=== PATIENT | female | born 1985 | race Caucasian/White ===

== ENCOUNTER 2017-02-12 16:52 | Emergency (ER) | payer OTHER ==
[2017-02-12 17:35] VITALS: BP 119/65
[2017-02-12] MEDS ORDERED: Ketorolac INJ* 60 MG/2 ML VIAL IM ONE (17:44)
--- NOTE | 2017-02-12 17:54 | UC ---
Back Pain HPI - HPI Summary HPI Summary: TWO DAYS OF BACK SPASMS. HAS HISTORY OF BACK PAIN AND SPINAL STENOSIS. HAS HAD TORADOL INJECTION IN PAST, HELPED WITH SPASMS. DOES NOT WANT ANY NARCOTICS.NO NUMBNESS OR TINGLING. NO DIFFICULTY WITH URINATION. NO TRAUMA. NO LOSS OF CONTROL OF BLADDER OR BOWELS. PALPABLE SPASM. HX OF KIDNEY STONES IN THE PAST " BUT THIS JUST FEELS LIKE A SPASM." - History of Current Complaint Chief Complaint: UCBackPain Stated Complaint: BACK SPASMS Time Seen by Provider: 02/12/17 17:29 Hx Obtained From: Patient Hx Last Menstrual Period: 01/30/17 Onset/Duration: Sudden Onset, Lasting Days, Still Present Timing: Constant, Lasting Days Severity Initially: Moderate Severity Currently: Severe Back Pain: Is Discrete @ - RIGHT MID BACK Character: Throbbing, Spasmodic Aggravating: Movement Alleviating: Rest, Position Associated Signs And Symptoms: Negative: Fever, Numbness, Tingling, Abdominal Pain, Flank Pain, Bladder Incontinence, Bowel Incontinence Related History: Previous Back Injury - Risk Factors AAA Risk Factors: Negative TAD Risk Factors: Negative Cauda Equina Risk Factors: Negative Epidural Abscess Risk Factors: Negative - Allergies/Home Medications Allergies/Adverse Reactions: Allergies Allergy/AdvReac Type Severity Reaction Status Date / Time AVOIDS NARCOTICS Allergy See Comment Uncoded 02/12/17 17:24 PMH/Surg Hx/FS Hx/Imm Hx Previously Healthy: Yes Endocrine History Of: Denies: Diabetes, Thyroid Disease Cardiovascular History Of: Denies: Cardiac Disorders, Hypertension Respiratory History Of: Denies: COPD, Asthma GI/ History Of: Denies: Ulcer - Surgical History Surgical History: Yes Surgery Procedure, Year, and Place: , tonsilectomy. appendectomy 2013 - Family History Known Family History: Positive: Hypertension - Social History Occupation: Employed Full-time Lives: With Family Alcohol Use: Rare Substance Use Type: Heroin Substance Use Comment - Amount & Last Used: IN RECOVERY THREE TIMES A WEEK. Smoking Status (MU): Current Some Day Smoker Type: Cigarettes Amount Used/How Often: OCCASSIONAL - Immunization History Most Recent Influenza Vaccination: no Review of Systems Constitutional: Negative Skin: Negative Eyes: Negative ENT: Negative Respiratory: Negative Cardiovascular: Negative Gastrointestinal: Negative Genitourinary: Negative Motor: Negative Neurovascular: Negative Musculoskeletal: Arthralgia, Myalgia Neurological: Negative Psychological: Negative All Other Systems Reviewed And Are Negative: Yes Physical Exam Triage Information Reviewed: Yes Appearance: Well-Appearing, Well-Nourished, Pain Distress - MODERATE Vital Signs: Initial Vital Signs Temp 98.8 F 02/12/17 17:25 Pulse 89 02/12/17 17:25 Resp 18 02/12/17 17:25 BP 119/65 02/12/17 17:25 Pulse Ox 97 02/12/17 17:25 Vital Signs Reviewed: Yes Eye Exam: Normal ENT Exam: Normal ENT: Positive: Normal ENT inspection Dental Exam: Normal Neck exam: Normal Neck: Positive: Supple, Nontender, No Lymphadenopathy Respiratory Exam: Normal Respiratory: Positive: Chest non-tender, Lungs clear, Normal breath sounds, No respiratory distress, No accessory muscle use Cardiovascular Exam: Normal Cardiovascular: Positive: RRR, No Murmur, Pulses Normal Abdominal Exam: Normal Abdomen Description: Positive: Nontender, No Organomegaly. Negative: CVA Tenderness (R), CVA Tenderness (L) Musculoskeletal Exam: Normal Musculoskeletal: Positive: Strength Intact, ROM Intact, No Edema Neurological Exam: Normal Psychological Exam: Normal Skin Exam: Normal Back Pain Course/Dx - Differential Dx/Diagnosis Differential Diagnosis/HQI/PQRI: Arthritis, Strain, Sprain Provider Diagnoses: MUSCLE SPASM RIGHT MID BACK; ACUTE ON CHRONIC BACK PAIN Discharge - Discharge Plan Condition: Stable Disposition: HOME Prescriptions: Cyclobenzaprine TAB* [Flexeril 10 MG TAB*] 10 mg PO BID PRN #10 tab PRN Reason: Spasms Ketorolac TAB * [Toradol TAB *] 10 mg PO Q8HR #10 tab Patient Education Materials: Muscle Spasm (ED), Chronic Back Pain (ED) Referrals: Mago Luna PA [Primary Care Provider] - Additional Instructions: PHYSICAL THERAPY REFERRAL: You have been prescribed physical therapy. Treatments may include stretching, exercise, application of heat or cold, and other modalities. After an injury, PT can reduce swelling and pain. In recovery, PT is used to restore mobility and strength. Your specific treatment goals are: ___X__ Reduction of Swelling (EGS, US, ice as needed) __X___ Pain Reduction (EGS, US, ice as needed) ___X__ TENS Pack Fitting and Instruction Wound Hydrotherapy ____X_ Preservation of Mobility ____X_ Latter Day of Mobility ___X__ Strength Latter Day ___X__ Work or Sports Hardening This instruction sheet also serves as your PHYSICAL THERAPY REFERRAL! Please take it with you to the therapist, so he/she will be aware of your diagnosis and treatment plan. You may see the physical therapist of your choice for these treatments, but may wish to check with your insurance to be sure the provider you select is covered. It's important to see the doctor to whom you have been referred for follow up.
== END 2017-02-12 18:06 | disposition home or self-care (01) ==
LOC: UCCORT 16:52
DX: M62.830 Muscle spasm of back (principal); M54.9 Dorsalgia, unspecified; Z88.5 Allergy status to narcotic agent; Z72.0 Tobacco use
CPT/HCPCS: 96372; 99212; G0463; J1885

== ENCOUNTER 2017-05-23 11:25 | Emergency (ER) | payer OTHER ==
--- NOTE | 2017-05-23 11:36 | UC ---
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, concerned she has thrush in her mouth, tongue is sore and irritated - History of Current Complaint Chief Complaint: UCDentalProblem Stated Complaint: ORAL COMPLAINT Time Seen by Provider: 05/23/17 11:28 Hx Obtained From: Patient Hx Last Menstrual Period: 01/30/17 ?: No Onset/Duration: Gradual Onset, Lasting Days, Still Present Severity: Mild Aggravating: Chewing Alleviating: Nothing - Allergies/Home Medications Allergies/Adverse Reactions: Allergies Allergy/AdvReac Type Severity Reaction Status Date / Time AVOIDS NARCOTICS Allergy See Comment Uncoded 05/23/17 12:01 Home Medications: Home Medications Ferrous Gluconate TAB* [Fergon TAB*] 325 mg PO DAILY 05/23/17 [History Confirmed 05/23/17] Furosemide TAB* [Lasix TAB*] 20 mg PO BID 05/23/17 [History Confirmed 05/23/17] Multivitamins/Minerals TAB* [Thera M Plus TAB*] 1 tab PO DAILY 05/23/17 [ History Confirmed 05/23/17] Warfarin TAB(*) [Coumadin TAB(*)] 7.5 mg PO DAILY 05/23/17 [History Confirmed ] PMH/Surg Hx/FS Hx/Imm Hx Previously Healthy: No Cardiovascular History: Other - tricuspid valve replacement, Other Cardiovascular History: tricuspid valve replacement - Surgical History Surgical History: Yes Surgery Procedure, Year, and Place: , tonsilectomy. 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 Smoking Status (MU): Current Some Day Smoker Type: Cigarettes Amount Used/How Often: OCCASSIONAL - Immunization History Most Recent Influenza Vaccination: no Review of Systems Constitutional: Negative Skin: Negative Eyes: Negative ENT: Other - tongue is sore Respiratory: Negative Cardiovascular: Negative Gastrointestinal: Negative Genitourinary: Negative Motor: Negative Neurovascular: Negative Musculoskeletal: Negative Neurological: Negative Psychological: Negative All Other Systems Reviewed And Are Negative: Yes Physical Exam Triage Information Reviewed: Yes Appearance: Well-Appearing, No Pain Distress, Well-Nourished Vital Signs Reviewed: Yes Eye Exam: Normal Eyes: Positive: Conjunctiva Clear ENT Exam: Normal ENT: Positive: Normal ENT inspection, Hearing grossly normal, Pharyngeal erythema, TMs normal. Negative: Nasal congestion, Nasal drainage, Tonsillar swelling, Tonsillar exudate, Trismus, Muffled/hoarse voice Dental Exam: Normal Neck exam: Normal Neck: Positive: Supple, Nontender Respiratory Exam: Normal Respiratory: Positive: Chest non-tender, Lungs clear, Normal breath sounds, No respiratory distress, No accessory muscle use Cardiovascular Exam: Normal Cardiovascular: Positive: RRR, No Murmur, Pulses Normal, Brisk Capillary Refill Musculoskeletal Exam: Normal Musculoskeletal: Positive: Strength Intact, ROM Intact, No Edema Neurological Exam: Normal Neurological: Positive: Alert, Muscle Tone Normal Psychological Exam: Normal Skin Exam: Normal Diagnostics - EKG Cardiac Rate: Tachycardia Cardiac Rhythm: Sinus: Normal Ectopy: None ST Segment: Normal Re-Evaluation - Re-Evaluation First Eval Change: Worse - nurse in to triage patient after patient seen by me. Patient now c/o feeling clammy, heart beating fast, just not right---EKG done ST [address] change--plan now to transfer patient to [facility] for further evaluation Dental Complaint Course/Dx - Course Course Of Treatment: transfer AMA to [facility] with grandmother driving - Differential Dx/Diagnosis Differential Diagnosis/Dx: Gingivitis, Peridontic Disease, Other - Thrush, Hypokalemia, tachycardia Provider Diagnoses: Tachycardia, thrush - Physician Notification/Consults Time Discussed With Above Provider: 12:15 - Dr. Louie Instructed by Provider To: Transfer Discharge - Discharge Plan Condition: Guarded Disposition: AGAINST MEDICAL ADVICE Prescriptions: Nystatin SUSPENSION* 500,000 units .SEE ORDER BID #100 ml Patient Education Materials: Nystatin (By mouth), Oral Candidiasis (ED), Tachycardia (ED) Referrals: Mago Luna PA [Physician Police Service Technician] - 1 Week
[2017-05-23 12:01] VITALS: BP 136/103
== END 2017-05-23 12:20 | disposition left against medical advice (07) ==
LOC: UCCORT 11:25
DX: R00.0 Tachycardia, unspecified (principal); B37.0 Candidal stomatitis; Z88.5 Allergy status to narcotic agent; Z79.01 Long term (current) use of anticoagulants; Z95.2 Presence of prosthetic heart valve; F17.210 Nicotine dependence, cigarettes, uncomplicated
CPT/HCPCS: 93005; 99212; G0463

== ENCOUNTER 2017-10-19 16:03 | Emergency (ER) | payer OTHER ==
[2017-10-19 16:38] VITALS: BP 136/82
== END 2017-10-19 16:44 | disposition left against medical advice (07) ==
LOC: UCCORT 16:03
DX: L98.9 Disorder of the skin and subcutaneous tissue, unspecified (principal); Z53.21 Procedure and treatment not carried out due to patient leaving prior to being seen by health care provider

== ENCOUNTER 2018-03-22 11:27 | Emergency (ER) | payer OTHER ==
[2018-03-22 12:15] VITALS: BP 138/89
[2018-03-22] MEDS ORDERED: Tetracaine 0.5% OPTH.SOL 4 ML* 1 DROP BTL ONE (12:25)
[2018-03-22] MEDS ORDERED: Fluorescein Sod TOPICAL 0.6* 0.6 MG TEST OPHTHALMIC ONE (12:25)
--- NOTE | 2018-03-22 12:44 | UC ---
Eye Complaint HPI - HPI Summary HPI Summary: Patient presents to with complaints of left eye pain, redness, swelling and tearing. Patient states she fell asleep with her contacts in the night before last. Patient states yesterday during the day her eye became more red. Patient states this morning it was painful and tearing. Patient states she is unable to keep eye open because of the tearing and discomfort. Patient states feels like it's "scratched". Patient without other complaints. No ear pain no sinus pain no sore throat. Patient did not take any medication for it. She states she is photophobic and sunglasses improve. Patient does not know last tetanus Medications medications reviewed this visit - History of Current Complaint Chief Complaint: UCEye Stated Complaint: EYE IRRITATION Time Seen by Provider: 03/22/18 12:44 Hx Obtained From: Patient Hx Last Menstrual Period: current ?: No Severity Initially: Mild Severity Currently: Mild Pain Intensity: 2 Pain Scale Used: 0-10 Numeric - Allergies/Home Medications Allergies/Adverse Reactions: Allergies Allergy/AdvReac Type Severity Reaction Status Date / Time AVOIDS NARCOTICS Allergy See Comment Uncoded 03/22/18 12:15 PMH/Surg Hx/FS Hx/Imm Hx Previously Healthy: Yes - substance use currently in remission Other Cardiovascular History: tricuspid valve replaced second endocarditis - Surgical History Surgical History: Yes Surgery Procedure, Year, and Place: , tonsilectomy. appendectomy 2013. 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 Pt able to read after instilled tetracaine everted lids - no f.b. fluoroscene dye - pt with corneal abrasion 2 o'clock no foreign body ENT: Hearing grossly normal neck: supple Respiratory: Positive: No respiratory distress, No accessory muscle use Cardiovascular: skin color reflect adequate perfusion Musculoskeletal Exam: SWEET x 4 without difficulty Neurological: Positive: Alert, ambulatory without difficulty Psychological: Positive: Normal Response To Family Skin: Positive: no rash, no ecchymosis Triage Information Reviewed: Yes Vital Signs: Initial Vital Signs Temp 96.7 F 03/22/18 12:11 Pulse 78 03/22/18 12:11 Resp 18 03/22/18 12:11 BP 138/89 03/22/18 12:11 Pulse Ox 100 03/22/18 12:11 Eye Complaint Course/Dx - Course Course Of Treatment: Patient presents with irritation erythema to left eye after sleeping with contact lenses in. Patient after fluorescein has a small corneal abrasion. Patient will be started on ciprofloxacin drops. Patient also given a prescription for ketorolac drops. Discussed with patient Motrin Tylenol for pain. Also updated tetanus. Patient to follow up with clinical rehab specialist tomorrow. Patient will likely go the eye clinic in [place]. Also discussed with her doctor earlier. Strict return precautions discussed. Pt aware should not put contact lenses back in - Differential Dx/Diagnosis Provider Diagnoses: corneal abrasion contact lenses Discharge - Sign-Out/Discharge Documenting (check all that apply): Discharge/Admit/Transfer - Discharge Plan Condition: Stable Disposition: HOME Prescriptions: Ciprofloxacin 0.3% OPTH.AGNES* [Cipro 0.3% Opth*] 2 drop LEFT EYE Q4H #1 btl Ketorolac 0.5% OPHTH (NF) 1 drop LEFT EYE TID PRN #1 btl PRN Reason: eye pain Patient Education Materials: Diphtheria/Pertussis/Tetanus Vaccine (By injection ), Corneal Abrasion (ED) Forms: *Gen. Provider Communication, *Work Release Referrals: Barber YUN,Jorge Alberto Oliva [Primary Care Provider] - Additional Instructions: - Apply eye drops every 4hours today and tomorrow - discuss further treatment when you are evaluated by the clinical rehab specialist - okay to use eye drops as prescribed for pain - alternate ibuoprofen (advil, motrin) and tylenol every 3hours for pain. Take with food. 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
[2018-03-22] MEDS ORDERED: Tetan/Diph/Pertus SYR(Tdap)* 0.5 ML SYR(BOOSTRIX) use SYR IM ONE (12:59)
== END 2018-03-22 13:21 | disposition home or self-care (01) ==
LOC: UCCORT 11:27
DX: H18.822 Corneal disorder due to contact lens, left eye (principal); Z88.5 Allergy status to narcotic agent; Z95.2 Presence of prosthetic heart valve; F17.210 Nicotine dependence, cigarettes, uncomplicated
CPT/HCPCS: 90471; 90715; 99212; A9270-GY; G0463

== ENCOUNTER 2019-12-20 15:54 | Emergency (ER) | payer OTHER ==
--- NOTE | 2019-12-20 16:23 | UC ---
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 She has not had fever, chills, appetite loss or myalgias. No headache. Hx of bronchitis, last treated about 8 months ago, and typically needs steroids and albuterol. 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 She has not had direct contact, does not know the result of her co-worker's test, and he remains in isolation. - History of Current Complaint Stated Complaint: COUGH, WHEEZING Time Seen by Provider: 12/20/19 16:12 Hx Obtained From: Patient Hx Last Menstrual Period: current Onset/Duration: Gradual Onset, Lasting Days Timing: Intermittent Episodes Severity Initially: Mild Severity Currently: Moderate Character: Cough: Productive Aggravating Factors: Recumbent Position Alleviating Factors: Nothing Associated Signs And Symptoms: Positive: Dyspnea - Risk Factors Pulmonary Embolism Risk Factors: Negative Cardiac Risk Factors: Negative Pseudomonas Risk Factors: Negative Tuberculosis Risk Factors: Negative - Allergies/Home Medications Allergies/Adverse Reactions: Allergies Allergy/AdvReac Type Severity Reaction Status Date / Time AVOIDS NARCOTICS Allergy See Comment Uncoded 12/20/19 16:10 Home Medications: Home Medications Albuterol HFA INHALER* [Ventolin HFA Inhaler*] 2 puff INH Q6H PRN #1 mdi [Rx] Amoxicillin/Clavulanate TAB* [Augmentin TAB 875*] 875 mg PO BID #14 tab [Rx] predniSONE 20 mg TAB [Deltasone 20 MG TAB*] 40 mg PO DAILY #10 tab 12/20/19 [Rx] PMH/Surg Hx/FS Hx/Imm Hx Previously Healthy: Yes - smoker Cardiovascular History: Other - hx of 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 Respiratory History: Bronchitis - Surgical History Surgical History: Yes Surgery Procedure, Year, and Place: , tonsilectomy. appendectomy 2013. 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 Negative: Fever Skin: Positive: Negative Eyes: Positive: Negative ENT: Positive: Ear Ache Respiratory: Positive: Shortness Of Breath, Cough Cardiovascular: Negative: Palpitations, Chest Pain Gastrointestinal: Positive: Negative Genitourinary: Positive: Negative Motor: Positive: Negative Neurovascular: Positive: Negative Musculoskeletal: Positive: Negative Neurological/Mental Status: Positive: Negative Psychological: Positive: Negative Is Patient Immunocompromised?: No Physical Exam Triage Information Reviewed: Yes Appearance: Well-Appearing, No Pain Distress ENT: Positive: Pharynx normal Neck: Positive: Supple, Nontender, No Lymphadenopathy Respiratory: Positive: No respiratory distress, Decreased breath sounds, Wheezing - expiratory wheezes throughout both lung jeffrey Cardiovascular: Positive: RRR, No Murmur Musculoskeletal Exam: Normal Neurological Exam: Normal Psychological Exam: Normal Skin Exam: Normal Respiratory Course/Dx - Course Course Of Treatment: COVID testing done due to history; clinical findings consistent with bronchitis without findings to suggest pneumonia. Will treat with antibiotics, albuterol, prednisone. Typcially, she needs oral steroid when she feels as she does now. - Differential Dx/Diagnosis Differential Diagnosis/HQI/PQRI: Asthma, Bronchitis, Lower Resp Infection, Sinusitis Provider Diagnosis: Bronchitis Discharge ED - Sign-Out/Discharge Documenting (check all that apply): Patient Departure All imaging exams completed and their final reports reviewed: No Studies - Discharge Plan Condition: Stable Disposition: HOME Prescriptions: Albuterol HFA INHALER* [Ventolin HFA Inhaler*] 2 puff INH Q6H PRN #1 mdi PRN Reason: Wheezing Amoxicillin/Clavulanate TAB* [Augmentin TAB 875*] 875 mg PO BID #14 tab predniSONE 20 mg TAB [Deltasone 20 MG TAB*] 40 mg PO DAILY #10 tab Patient Education Materials: Acute Bronchitis (ED) Forms: *Work Release, COVID-19 Tested & Isolation Referrals: Barber YUN,Jorge Alberto Oliva [Medical Doctor] - Additional Instructions: Begin use of augmentin for treatment of bronchitis, along with prednisone and albuterol as needed. Your blood pressure is elevated today to 142/96. As discussed, it is advisable to schedule a cardiology visit for re-assessment due to your history of valve replacement. COVID testing is pending and will take up to 6 days for a result, 3 or 4 is current average. Maintain isolation until then. If you develop fever or shortness of breath, please proceed to the emergency room for evaluation. - Billing Disposition and Condition Condition: STABLE Disposition: Home
[2019-12-20 16:51] VITALS: BP 142/96
== END 2019-12-20 16:57 | disposition home or self-care (01) ==
LOC: UCCORT 15:54
DX: J40 Bronchitis, not specified as acute or chronic (principal); Z20.828 Contact with and (suspected) exposure to other viral communicable diseases; Z95.2 Presence of prosthetic heart valve; Z88.5 Allergy status to narcotic agent; Z72.0 Tobacco use
CPT/HCPCS: 87635; 99212; G0463